=== PATIENT | female | born 1970 | race Caucasian/White ===

== ENCOUNTER 2018-01-26 09:01 | Emergency (ER) | payer MEDICAID ==
[~2018-01-26] VITALS: Ht 157.5 cm; Wt 50.0 kg
[2018-01-26] MEDS ORDERED: SODIUM CHLORIDE 0.9% 1,000 ML IV ONE (09:08)
[2018-01-26] MEDS ORDERED: FAMOTIDINE 20MG/2ML VIAL IV STA (09:08)
[2018-01-26] MEDS ORDERED: MAGNESIUM/ALUMINUM HYDROXIDE/SIMETHICONE 30ML UDC PO STA (09:08)
[2018-01-26] MEDS ORDERED: ONDANSETRON HCL 4MG/2ML VIAL IV STA (09:08)
[2018-01-26 09:40] LABS: BASOPHILS % 0.3 % (0.0-2.0); EOSINOPHILS % 6.1 % (0.0-5.0); HEMATOCRIT. 34.9 % (36.0-48.0); HEMOGLOBIN. 11.7 g/dL (12.0-16.0); LYMPHOCYTES % 30.1 % (20.0-50.0); MEAN CORPUSCULAR HEMOGLOBIN 27.8 pg (28.0-32.0); MEAN CORPUSCULAR VOLUME 82.8 fL (81.0-99.0); MEAN PLATELET VOLUME 7.7 fl (7.4-10.4); MONOCYTES % 6.8 % (2.0-8.0); NEUTROPHILS % 56.7 % (40.0-76.0); PLATELET 308 x1000/uL (130-400); RED BLOOD CELL COUNT 4.21 mill/uL (4.2-5.4); RED CELL DISTRIBUTION WIDTH 15.7 % (11.6-14.6)
[2018-01-26 09:47] LABS: CHLORIDE 108 mEq/L (98-107)
[2018-01-26 09:48] LABS: PROTHROMBIN TIME 10.3 sec (9.4-11.6)
[2018-01-26 10:39] LABS: CLARITY URINE CLEAR (CLEAR); COLOR URINE YELLOW (YELLOW); KETONES URINE NEGATIVE (NEGATIVE); LEUKOCYTE ESTERASE URINE NEGATIVE (NEGATIVE); NITRITE URINE NEGATIVE (NEGATIVE); OCCULT BLOOD URINE NEGATIVE (NEGATIVE); PH URINE 7.5 (4.5-8.0); PROTEIN URINE NEGATIVE (NEGATIVE); SPECIFIC GRAVITY URINE 1.031 (1.005-1.030)
[2018-01-26 11:27] LABS: *AMPHETAMINES SCREEN URINE NEGATIVE (NEGATIVE); *BENZODIAZEPINES SCREEN URINE NEGATIVE (NEGATIVE); *COCAINE SCREEN URINE NEGATIVE (NEGATIVE)
[2018-01-26 11:28] LABS: CANNABINOID URINE SCREEN NEGATIVE (NEGATIVE); METHADONE URINE SCREEN NEGATIVE (NEGATIVE); OPIATES URINE SCREEN NEGATIVE (NEGATIVE); PHENCYCLIDINE URINE SCREEN NEGATIVE (NEGATIVE)
[2018-01-26 11:35] LABS: *BARBITURATES SCREEN URINE NEGATIVE (NEGATIVE)
[2018-01-26 12:57] VITALS: BP 111/51
== END 2018-01-26 12:57 | disposition home or self-care (01) ==
LOC: ER 09:15 → EDBD 09:15 → ER 12:57
DX: D64.9 Anemia, unspecified (principal); R11.2 Nausea with vomiting, unspecified; R00.1 Bradycardia, unspecified; F41.9 Anxiety disorder, unspecified
CPT/HCPCS: 36415; 80053; 80305; 81003; 81025; 83690; 85025; 85610; 93005; 96361; 96374; 96375; 99285; G0482; J2405; J3490; J7030